=== PATIENT | male | born 1990 | race Caucasian/White ===

== ENCOUNTER 2021-09-26 01:15 | Emergency (ER) | payer MEDICAID, OTHER ==
[~2021-09-26] VITALS: Ht 175.3 cm; Wt 81.6 kg
--- NOTE | 2021-09-26 03:30 | NUR ---
PATIENT BIBSELF C/O WANTING TO HURT SELF VOL PSYCH ADMIT. PATIENT IS A/O X 4, RR EVEN AND UNLABORED NO SOB NOTED. NO ACUTE DISTRESS NOTED. PATIENT TAKEN TO ER BED 18. PATIENT WANDED BY SECURITY, BELONGING TAKEN AND PLACED IN LOCKER. PATIENT PLACED IN HOSPITAL GOWN. WILL CONTINUE TO MONITOR.
--- NOTE | 2021-09-26 03:38 | NUR ---
URINE SAMPLE COLLECTED AND SENT TO LAB
[2021-09-26 04:24] LABS: BILIRUBIN,URINE NEGATIVE (NEGATIVE); COLOR,URINE YELLOW (YELLOW); LEUKOCYTE ESTERASE ,URINE NEGATIVE (NEGATIVE); NITRITE, URINE NEGATIVE (NEGATIVE); PROTEIN,URINE 30 mg/dl (NEGATIVE); UGLUCOSE NEGATIVE (NEGATIVE); UROBILINOGEN,URINE 0.2 EU/dL (0.2)
[2021-09-26 04:24] LABS: BASOPHILS % (AUTO) 0.5 % (0.0-2.0); EOSINOPHILS % (AUTO) 1.8 % (0.0-6.0); HEMATOCRIT 36 % (39-51); HEMOGLOBIN 12.4 g/dL (13.5-17.5); LYMPHOCYTES # (AUTO) 1.9 K/uL (0.8-4.8); LYMPHOCYTES % (AUTO) 29.8 % (20.0-44.0); MEAN CORPUSCULAR HGB CONC 35 g/dl (31.0-36.0); MEAN CORPUSCULAR VOLUME 90 fL (80-96); MONOCYTES # (AUTO) 0.4 K/uL (0.1-1.30); MONOCYTES % (AUTO) 6.7 % (2.0-12.0); NEUTROPHILS # (AUTO) 3.8 K/uL (1.8-8.9); NEUTROPHILS % (AUTO) 61.2 % (43.0-81.0); PLATELET COUNT (AUTO) 202 K/uL (150-450); RED BLOOD CELL COUNT(AUTO) 3.98 MIL/uL (4.5-6.0); WHITE BLOOD COUNT (AUTO) 6.2 K/uL (4.3-11.0)
[2021-09-26 04:37] LABS: CALCIUM, SERUM 8.2 mg/dL (8.5-10.1); CARBON DIOXIDE 27 mmol/L (21-32); CHLORIDE 106 mmol/L (98-107); GLUCOSE 118 mg/dL (74-106); POTASSIUM 3.3 mmol/L (3.5-5.1); SODIUM SERUM 141 mmol/L (136-145); UREA NITROGEN, BLOOD 15 mg/dL (7-18)
[2021-09-26 04:37] LABS: BACTERIA,URINE Rare /HPF (None Seen); RBC,URINE 0-2 /HPF (0-2)
[2021-09-26 04:38] LABS: SQUAMOUS EPITHELIAL CELL,UR Few /HPF (None Seen)
[2021-09-26 04:38] LABS: ALANINE AMINOTRANSFERASE 87 U/L (12-78); ALBUMIN 3.5 g/dL (3.4-5.0); ALKALINE PHOSPHATASE 80 U/L (46-116); ASPARTATE AMINOTRANSFERASE 39 U/L (15-37); BILIRUBIN,DIRECT 0.1 mg/dL (0.0-0.2); BILIRUBIN,TOTAL 0.2 mg/dL (0.2-1.0); TOTAL PROTEIN, SERUM 6.6 g/dL (6.4-8.2)
[2021-09-26 04:39] LABS: ACETAMINOPHEN 0 ug/ml (10-30); ALCOHOL, BLOOD < 3 mg/dL (0-0)
[2021-09-26 09:00] VITALS: BP 130/68
--- NOTE | 2021-09-26 10:32 | NUR ---
JEIMY faxed clinicals to [facility] [[address] [place] [id number] FAX:[phone]] for voluntary psychiatric treatment.
--- NOTE | 2021-09-26 10:49 | NUR ---
SS consult: SS Consult requested for SI, and homelessness. The pt. is a 31-year-old male patient who was came to [facility] Upon SS consult, the pt. is Alert & Oriented x 3 and makes good eye contact. The pt. appears unkempt with depressed mood & affect. Pt. states he has thoughts of hurting himself with no plan. 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 Pt. denies current HI and denies hallucinations. SW explored pt.'s living situation. Patient states he is currently experiencing homelessness. Per pt. he stays in an encampment in [place]. SW explored pt.'s drug & ETOH use. Pt. states he only smokes weed because "it helps with the seizures". Per pt. he is ambulatory and independent with all his ADL's. SW explored pt.'s support system. Pt. states his mother, Michelle Angulo [phone] is his support system. Plan: SW was referred pt. to [facility] for inpatient psychiatric treatment. SW provided pt. with homeless, and mental health resources, and he refused them. Pt. signed homeless waiver and it was placed in the pt.'s chart. Year-round shelters: [facility] [address] [place], [place] [id number] ; [facility] [address] [place] [address]; [facility] Aobwxlm5822 [facility]. [facility] [address] Hygiene: [place] [facility]: [address] [place] ; [place] [facility] [address] [facility] ; [facility] [address] Gianfranco Weinstein . Food Resources: [place] [facility] at [facility]- [address]. Indian; Meet Each Need with Dignity (MEND) [address] [place]; [facility] 3[address] [facility]; [facility] 5469 Julián Gallego. Mental Health resources provided: [facility] [address] [place], [place] [address] ; [facility] [address] [facility] [address], [place], [place] [id number] ; [facility] [address] [facility] [address] [place], [place] [phone] ; [facility] [address] [place], [place] [address] Healthcare Clinics: [facility] [address] [facility], [address] [place]. [place] ; [facility] [address] [facility] [address] [place] [address]; [facility] [address] [place] [address] [phone] Counseling--Outpatient [facility] [address] [facility], [place] [address] (Specializes in in-depth psychotherapy for emotional distress: anxiety, depression, interpersonal conflicts, life transitions, childhood abuse) [facility] [address] [place] [address] (Assist with solving problem marital difficulties, separation & divorce, aging parents, & grief, chronic & terminal illness) [facility] [address] [place] [address] (Deal with loss & grief, anxiety, marital difficulties) Homebound/Mental Health Services [address] [facility], [address] [place], [place] [address] (Provide in-home mental services to people who are incapable of leaving their homes) [facility] Elder[facility] Senior Service/Resource Center [address] [facility] [place] [address] [facility] [address] [facility]. [place], [place] [phone] PSYCHIATRIC OUTPATIENT SERVICES [facility] Partial Hospitalization and Intensive Outpatient Program (Managed Care and [place] Only)[address] [facility] [phone] [facility] Partial Hospitalization and Outpatient [address] [place], [place] [phone] GIANFRANCO YOUNGBLOOD [facility] [id number] [facility]. [address] [place], [place] [phone] [facility] Partial Hospitalization and Outpatient Ltrwdek60065 Emelijo ann [facility] Gianfranco Youngblood, [phone] Substance Abuse resources provided included: [facility] Substance Abuse Self-Helpline ([facility]) ; [facility] [address] [facility] [place]. [place] [address] ; [facility] [address] [facility] [address] ; [facility] [address] [address] [facility] [address] ; [facility] [phone] ; [facility] [address] [facility] [address] ; [facility] [address] [facility] [phone] ; [facility] Substance Abuse Helpline([facility])-[facility] ; [facility] ; [facility] [place]; [facility] [place]; [facility] [place]; [facility] Gianfranco Younbglood; [place] [facility]; [facility]; [facility]; [facility] Eri Duran; Alcoholics Anonymous -SFV; Kira ; Marijuana Anonymous -[facility]V; Narcotics Anonymous [email or web address];
--- NOTE | 2021-09-26 11:50 | NUR ---
INTAKE CALLED PT ACCEPTED TO [facility] UNDER DR. [facility]SP[facility] WILL BE HERE AT 1300
[2021-09-26] MEDS ORDERED: LEVETIRACETAM (250 MG) 250 MG TABLET PO ONE ×2 (12:16→12:30)
--- NOTE | 2021-09-26 12:18 | NUR ---
PICKED UP BY RONY NEWELL IN STABLE CONDITION
== END 2021-09-26 18:42 ==
LOC: ER 01:18
DX: R45.851 Suicidal ideations (principal); G40.909 Epilepsy, unspecified, not intractable, without status epilepticus; Z79.899 Other long term (current) drug therapy; Z20.822 Contact with and (suspected) exposure to COVID-19; E87.6 Hypokalemia; R74.01 Elevation of levels of liver transaminase levels; F12.10 Cannabis abuse, uncomplicated; Z98.890 Other specified postprocedural states
CPT/HCPCS: 99285; 85025; 80048; 87086; 80076; 81001; 36415; 87426; 80143; 80320; 80307; C9803; G0480